=== PATIENT | male | born 1985 | race Caucasian/White ===

== ENCOUNTER → 2024-05-05 | Emergency (ER) | payer MEDICAID ==
[~2024-05-05] MED LIST: CEPH-558 PO; DOXY-354 PO; IBUP-1554 PO
[2024-05-05] MEDS: CEPHALEXIN MONOHYDRATE 500 MG CAPSULE PO ONE (16:25)
[2024-05-05] MEDS: ACETAMINOPHEN 500 MG TABLET PO ONE (16:26)
[2024-05-05] MEDS: IBUPROFEN 600 MG TABLET PO ONE (16:26)
== END | disposition still patient (30) ==
LOC: EMS 12:24
DX: L03.116 Cellulitis of left lower limb (principal); F20.9 Schizophrenia, unspecified
CPT/HCPCS: 99284; Z7502; Z7610